=== PATIENT | male | born 1950 | race Caucasian/White ===

== ENCOUNTER → 2017-02-03 | Outpatient (CLI) | payer MEDICARE ==
[~2017-02-03] MED LIST: ADVAIR 250-501 EAC1 IH; ADVAIR 250-501 EACH IH; ADVAIR 2501 DISK W/D PO; ADVAIR 500-501 EACH INH; ADVAIR 5001 DISK W/2 INH; ADVAIR HFA 115-12 GM INH; AGGRENOX PO; ALBUTEROL17 GM INH; ALDACTONE25 MG PO; ALFUZOSIN HCL E10 MG PO; ALFUZOSIN HCL10 MG PO; ALPRAZOLAM ER1 MG PO; ALPRAZOLAM PO; ALPRAZOLAM1 MG PO; AMLODIPINE BESY10 MG PO; AMLODIPINE BESYL5 MG PO; ANTIVERT PO; ARICEPT PO; ASPIRIN PO; ASPIRIN81 MG PO; AVAPRO300 M1 PO; AVODART0.5 MG PO; BAYER CHEWABLE81 MG PO; BENICAR PO; BENICAR20 MG PO; BENZONATATE200 M1 PO; BONINE25 M1 PO; CAPOTEN50 MG PO; CARVEDILOL25 MG PO; CATAPRES-TTS-20.2 M1 EXT; CATAPRES-TTS-20.2 MG PO; CEFDINIR300 MG PO; CHANTIX PO; CLARINEX5 MG PO; CLARITIN10 M2 PO; CLOPIDOGREL BIS75 MG PO; CLOPIDOGREL75 MG PO; COLACE PO; COMBIVENT U/D3 M1 INH; COREG PO; COUMADIN4 MG PO; COUMADIN5 MG PO; CRESTOR PO; CYANOCOBALAM1000 MCG PO; CYMBALTA PO; CYMBALTA30 MG PO; DALIRESP500 MCG PO; DESENEX45 GM EXT; DESYREL50 MG PO; DEXILANT30 MG PO; DIOVAN PO; DONEPEZIL HCL10 MG PO; DULOXETINE HCL60 M1 PO; DULOXETINE HCL60 MG PO; DUONEB INH; ENSURE LIQUID237 M2 PO; FINASTERIDE5 M1 PO; FINASTERIDE5 MG PO; FISH OIL 1,0001 CAP PO; FLOMAX0.4 M1 PO; FLOMAX0.4 MG PO; FLOVENT HFA10.6 GM; FUROSEMIDE40 MG PO; HUMIBID-LA600 MG PO; HYDRALAZINE HCL25 MG PO; HYDRALAZINE HCL50 MG PO; HYDROCODON-ACE1 EAC5 PO; HYDROCODONE-APA1 T54 PO; INDOMETHACIN50 MG PO; IPRATR-ALBUTEROL3 ML INH; K-DUR20 ME1 PO; K-DUR20 ME2 PO; K-LOR20 MEQ PO; KCL PO; KEPPRA250 MG PO; KEPPRA500 M1 PO; KEPPRA500 M2 PO; KEPPRA500 MG PO; LASIX PO; LEVAQUIN PO; LEVAQUIN750 M1 PO; LEVOTHYROXINE25 MCG PO; LEVOTHYROXINE50 MC1 PO; LEVOXYL50 MCG PO; LISINOPRIL10 MG PO; LISINOPRIL5 MG PO; LORCET; LOTREL 10/20 MG1 CAP PO; MEDI-MECLIZINE25 M1 PO; MILK OF MAGNES311 MG PO; MIRALAX17 GM PO; MOBIC PO; MOTION RELIEF25 MG PO; MYCOLOG II CREA15 GM TOP; NEURONTIN300 MG PO; NEXIUM PO; NITROGYLCERIN SUBLINGUAL; NORCO 10-325 TA1 TAB PO; NORCO 10/3251 TAB PO; NORVASC PO; NORVASC10 MG PO; OMEGA 3 FISH1 CAP.EC PO; OMEGA-31000 M1 PO; PANTOPRAZOLE SO40 MG PO; PERCOCET 5-3251 TAB PO; PHENERGAN25 M1 PO; PHENERGAN25 MG PO; PLAVIX PO; POTASSIUM 99 MG; POTASSIUM CHLO10 ME1 PO; POTASSIUM CHLO20 ME1 PO; PREDNISONE PO; PREDNISONE50 MG PO; PRILOSEC PO; PRINIVIL5 MG PO; PROAIR HFA INH; PROAIR HFA8.5 GM IH; PROAIR HFA8.5 GM INH; PROTONIX PO; RANEXA500 MG PO; RAPAFLO4 MG PO; RAPAFLO8 MG PO; STOOL SOFTENER1 EAC1 PO; STOOL SOFTENER100 M1 PO; SYMBICORT INH; SYNTHROID0.05 MG PO; SYNTHROID25 MCG PO; TIZANIDINE HCL2 M1; TRAMADOL HCL50 M1 PO; TUDORZA PRESS400 MCG INH; TUMS500 MG PO; ULTRAM PO; UROXATRAL10 MG PO; VICODIN ES 7.51 EAC1 PO; VITAMIN D1000 UNI2 PO; VITAMIN D3 COM1 EACH PO; VIVLODEX5 MG PO; XANAX1 MG PO; XARELTO10 MG PO; ZOCOR PO; ZOFRAN PO
--- NOTE | ~2017-02-03 | CT57 ---
[facility] A Service of [facility] & [facility] RADIOLOGY TEXT RESULTS PATIENT: GIGI MENDOSA [facility] UNIT #: [id number] AGE: [address]: Demi Smith SEX: M ORDER DR: [id number] [facility] [address] [place], [place] [address] [id number] O MR#: [id number] [facility] #: [id number] NAME: GIGI MENDOSA. : 1950 SEX: M STUDY DATE/TIME: 02/03/2017 13:29 UNIT: [facility] ROOM: STUDY DESCRIPTION: CT Chest Wo Cont Attending Physician: Demi Smith A.P.R.N. Ordering Physician: Demi Smith A.P.R.N. Primary Care Physician: Bk Rubin M.D. MEDICAL IMAGING REPORT This report is preliminary unless electronic signature is present EXAM CT chest. INDICATION Abnormal CT scan of the chest. COPD. Pulmonary nodules. Restaging. TECHNIQUE CT of the thorax without contrast. Coronal and sagittal reconstructions were obtained. This CT exam was performed with one or more of the following radiation dose reduction techniques: automatic exposure control, adjustment of mA and/or kV according to patient size, and iterative reconstruction. COMPARISON CT chest dated 09/26/2016, 09/10/2016, 08/16/2016, 07/13/2016, and 11/08/2014. FINDINGS There is moderate emphysema. There is a 9 mm pulmonary nodule in the medial aspect of the right lower lobe. This is unchanged from prior study, however, is increased in size from more remote studies. This should be followed. There are some clustered areas of nodularity in the anterior aspect of the right upper lobe. There is a new pulmonary nodule in the medial aspect of the superior segment right middle lobe. Airspace opacities in both lung bases have improved since the prior study. Patient has had abdominal aortic endograft repair. The maximal diameter of the descending thoracic aortic aneurysm is 5.8 cm compared to 6.2 cm previously. There is no pericardial or pleural effusion. Patient is status post CABG. Limited images of the upper abdomen were obtained. There is a right STS. [facility] A Service of [facility] & [facility] RADIOLOGY TEXT RESULTS PATIENT: GIGI MENDOSA LOCATION: [facility] : 49 UNIT #: [id number] AGE: [address]: Demi Smith SEX: M ORDER DR: adrenal adenoma. No acute osseous abnormalities. IMPRESSION 1. Decreasing size of the thoracic aortic aneurysm measuring 5.8 cm compared to 6.2 centered previously. 2. 9 mm pulmonary nodule in the right middle lobe is unchanged from the most recent comparison, however, has increased in size from prior exams. This should continued to be continued to be followed. 3. New patchy nodularity in the right middle lobe and a new nodule in the superior segment right lower lobe. These should be followed. Given the clustered configuration, these are probably benign. Dictated by... Paul Marmolejo M.D. THIS IS AN ELECTRONICALLY VERIFIED REPORT Paul Marmolejo M.D. at 02/04/2017 8:09 AM ESTEBAN/kati TD: 02/03/2017 17:20 JOB #: [id number] MEDICAL IMAGING REPORT Page 1 of 1 COPY
== END | disposition home or self-care (01) ==
LOC: CCAT 12:58
DX: R93.8 Abnormal findings on diagnostic imaging of other specified body structures (principal); I71.2 Thoracic aortic aneurysm, without rupture; R91.8 Other nonspecific abnormal finding of lung field
CPT/HCPCS: 71250

== ENCOUNTER → 2017-03-15 | Outpatient (CLI) | payer MEDICARE ==
--- NOTE | ~2017-03-15 | CT4 ---
[facility] A Service of [facility] & [facility] RADIOLOGY TEXT RESULTS PATIENT: GIGI MENDOSA LOCATION: [facility] : 48 UNIT #: [id number] AGE: [address]: Demi Smith SEX: M ORDER DR: [id number] [facility] [address] [place], [place] [address] [id number] O MR#: [id number] Acc #: [id number] NAME: GIGI MENDOSA. : 1950 SEX: M STUDY DATE/TIME: 03/15/2017 15:11 [facility] ROOM: STUDY DESCRIPTION: CT Abd and Pelv Wo Cont Attending Physician: Demi Smith A.P.R.N. Referring Physician: Demi Smith A.P.R.N. Ordering Physician: Demi Smith A.P.R.N. Primary Care Physician: Bk Rubin M.D. MEDICAL IMAGING REPORT This report is preliminary unless electronic signature is present EXAM CT abdomen and pelvis INDICATIONS Abnormal chest CT. Kidney and breast cancer. Observation for metastatic disease. Infrarenal abdominal aortic aneurysm. TECHNIQUE CT of the abdomen and pelvis without contrast. Coronal and sagittal reconstructions were obtained. This CT exam was performed with one or more of the following radiation dose reduction techniques: Automatic exposure control, adjustment of mA and/or kV according to patient size, and iterative reconstruction. COMPARISON CT chest dated 02/03/2017. CT abdomen and pelvis dated 08/30/2016. FINDINGS A 9 mm pleural-based ovoid nodule in the medial right lower lobe is unchanged from at least 08/30/2016. The abdominal aorta measures up to 4.9 cm at the diaphragmatic hiatus, unchanged. Enlarged celiac origin is similar to the prior study. The aorta tapers to normal caliber at the SMA origin. Both common iliac arteries are normal in size. Noncontrast evaluation of the liver, gallbladder, pancreas, and spleen are within normal limits. There is a benign right adrenal adenoma. The left kidney is surgically absent. There is a benign exophytic cyst off the lower-pole right kidney measuring 1.6 cm. No hydronephrosis. The bowel is not dilated. PELVIS: No pelvic mass. Bladder is unremarkable. No enlarged pelvic or inguinal lymph nodes. [facility] A Service of [facility] & [facility] RADIOLOGY TEXT RESULTS PATIENT: GIGI MENDOSA LOCATION: [facility] : 49 UNIT #: [id number] AGE: [address]: Demi Smith SEX: M ORDER DR: No acute osseous abnormalities. IMPRESSION 1. No acute findings in the abdomen or pelvis. 2. 9 mm ovoid nodule in the right middle lobe. This is unchanged from at least 11/29/2015. 3. Aneurysm of the descending thoracic aorta/abdominal aorta. Size of the aorta is unchanged at the diaphragmatic hiatus. Dictated by... Paul Marmolejo M.D. THIS IS AN ELECTRONICALLY VERIFIED REPORT Paul Marmolejo M.D. at 03/16/2017 7:34 AM RPC/darrius TD: 03/15/2017 23:03 JOB #: [id number] MEDICAL IMAGING REPORT Page 1 of 1 COPY
== END | disposition home or self-care (01) ==
LOC: CCAT 13:58
DX: R93.8 Abnormal findings on diagnostic imaging of other specified body structures (principal); R91.1 Solitary pulmonary nodule; I71.2 Thoracic aortic aneurysm, without rupture
CPT/HCPCS: 74176

== ENCOUNTER → 2017-04-12 | Outpatient (CLI) | payer MEDICARE ==
--- NOTE | ~2017-04-12 | CT57 ---
[facility] A Service [facility] RADIOLOGY TEXT RESULTS PATIENT: GIGI MENDOSA LOCATION: [facility] : 49 UNIT #: [id number] AGE: [address]: Ena Steiner MD SEX: M ORDER DR: [id number] [place] [id number] [facility] [place], [place] [address] [id number] O MR#: [id number] Acc #: [id number] NAME: GIGI MENDOSA. : 1950 SEX: M STUDY DATE/TIME: 04/12/2017 12:14 UNIT: [facility] ROOM: STUDY DESCRIPTION: CT Chest Wo Cont Attending Physician: Ena Steiner M.D. Referring Physician: Ena Steiner M.D. Ordering Physician: Ena Steiner M.D. Primary Care Physician: Bk Rubin M.D. MEDICAL IMAGING REPORT This report is preliminary unless electronic signature is present EXAM CT of the chest without contrast INDICATIONS Followup pulmonary nodules. TECHNIQUE CT of the chest was performed without contrast. Coronal and sagittal reformatted images were obtained. This CT exam was performed with one or more of the following radiation dose reduction techniques: automatic exposure control, adjustment of mA and/or kV according to patient size, and iterative reconstruction. COMPARISON STUDIES 02/03/2017. FINDINGS Re-demonstrated is a thoracic aortic stent graft. There is no evidence for suspicious lymphadenopathy. There is no pleural effusion. There is some increased small amount of irregular parenchymal density in the left lung apex which may simply represent scarring, however I would recommend a short-interval follow-up chest CT in 3 months to document stability or clearing of this finding. There are emphysematous changes of the lungs. Stable scarring in the right middle lobe and lingula. There is some increased scarring in the anterior left upper lobe. There is a stable 1 cm nodule in the medial right lung base. Limited imaging of the upper abdomen demonstrates a slight increase in size of aneurysmal dilatation of the upper abdominal aorta measuring 5.1-5.2 cm. [facility] A Service of [facility] & [facility] RADIOLOGY TEXT RESULTS PATIENT: GIGI MENDOSA LOCATION: [facility] #: [id number] : 49 UNIT #: [id number] AGE: [address]: Ena Steiner MD SEX: M ORDER DR: IMPRESSION 1. There is a small parenchymal density in the left lung apex not seen on previous study. This may simply represent scarring, however I would recommend 3-month follow-up chest CT to document stability or clearing of this finding. 2. The 1 cm nodule in the medial right lower lobe is stable. 3. Slight interval increase in size of aneurysmal dilatation of the upper abdominal aorta. Dictated by... Chepe Arredondo M.D. THIS IS AN ELECTRONICALLY VERIFIED REPORT Chepe Arredondo M.D. at 04/13/2017 8:14 AM AUREA/caroline TD: 04/12/2017 17:27 JOB #: [id number] MEDICAL IMAGING REPORT Page 1 of 1 COPY
== END | disposition home or self-care (01) ==
LOC: CCAT 11:10
DX: R91.8 Other nonspecific abnormal finding of lung field (principal); J98.4 Other disorders of lung; I71.4 Abdominal aortic aneurysm, without rupture
CPT/HCPCS: 71250

== ENCOUNTER 2017-04-24 17:49 | Emergency (ER) | payer MEDICARE ==
--- NOTE | ~2017-04-24 | CR206 ---
[facility] A Service of [facility] & [facility] RADIOLOGY TEXT RESULTS PATIENT: GIGI MENDOSA LOCATION: [facility] : 48 UNIT #: [id number] AGE: [address]: Lamont Duque MD SEX: M ORDER DR: [id number] [facility] [address] [place], [place] [address] [id number] E MR#: [id number] Acc #: [id number] NAME: GIGI MENDOSA. : 1950 SEX: M STUDY DATE/TIME: 04/24/2017 20:18 UNIT: [facility] ROOM: STUDY DESCRIPTION: CR Pelvis 1 or 2 Views Attending Physician: Lamont Duque M.D. Ordering Physician: Juan Ochoa M.D. Primary Care Physician: Bk Rubin M.D. MEDICAL IMAGING REPORT This report is preliminary unless electronic signature is present EXAM Pelvis series, 04/24/2017 HISTORY Trauma left femur, knee, shoulder and pelvis. Pain and swelling. Fell today. FINDINGS AP radiograph of the pelvis is presented. No traumatic fracture or malalignment. Mild narrowing bilateral hip joints, right greater than left. Well-defined focal density in the intertrochanteric region left femur slightly more pronounced than in 2013. Appearance most consistent with bone island. The bowel gas pattern shows a large volume of stool in the colon. Correlate with any clinical signs or symptoms of constipation. There is no indication of free air. No pathologic colonic dilatation. The periarticular soft tissues are unremarkable. Dictated by... Ferdinand Yin M.D. THIS IS AN ELECTRONICALLY VERIFIED REPORT Ferdinand Yin M.D. at 04/25/2017 6:54 PM Klaus TD: 04/25/2017 12:03 JOB #: [id number] MEDICAL IMAGING REPORT Page 1 of 1 COPY
--- NOTE | ~2017-04-24 | CT71 ---
[facility] A Service [facility] RADIOLOGY TEXT RESULTS PATIENT: GIGI MENDOSA LOCATION: [facility] : 49 UNIT #: [id number] AGE: [address]: Lamont Duque MD SEX: M ORDER DR: [id number] [facility] [address] [place], [place] [address] [id number] E MR#: [id number] Acc #: [id number] NAME: GIGI MENDOSA. : 1950 SEX: M STUDY DATE/TIME: 04/24/2017 20:07 UNIT: [facility] ROOM: STUDY DESCRIPTION: CT Head Wo Contrast Attending Physician: Lamont Duque M.D. Ordering Physician: Juan Ochoa M.D. Primary Care Physician: Bk Rubin M.D. MEDICAL IMAGING REPORT This report is preliminary unless electronic signature is present EXAM CT head, noncontrast, 04/24/2017. HISTORY 66-year-old male in the ED with head pain (07/26) and posterior neck pain after injury. Fell today at about 05:[address] examination of the head was performed without IV contrast. This CT exam was performed with one or more of the following radiation dose reduction techniques: Automatic exposure control, adjustment of mA and/or kV according to patient size, and iterative reconstruction. FINDINGS No acute intracranial abnormality is identified, and there is no evidence of skull fracture. Minimal patchy low-attenuation white matter changes, greatest in the left internal capsule, nonspecific but likely related to chronic microvascular disease. This is unchanged since 07/21/2016. No evidence of intracranial hemorrhage, mass, mass effect, cerebral edema or hydrocephalus. Mucosal thickening is present within the visualized ethmoid and maxillary sinuses. IMPRESSION 1. No acute intracranial abnormality or visible skull fracture. 2. Stable mild diffuse chronic changes as noted. 3. No change since 07/21/2016. Dictated by... Ricki Bolanos M.D. [facility] A Service [facility] RADIOLOGY TEXT RESULTS PATIENT: GIGI MENDOSA LOCATION: [facility] : 49 UNIT #: [id number] AGE: [address]: Lamont Duque MD SEX: M ORDER DR: THIS IS AN ELECTRONICALLY VERIFIED REPORT Ricki Bolanos M.D. at 04/26/2017 8:50 AM Sheng TD: 04/25/2017 11:42 JOB #: [id number] MEDICAL IMAGING REPORT Page 1 of 1 COPY
--- NOTE | ~2017-04-24 | CR172 ---
[facility] A Service of [facility] & [facility] RADIOLOGY TEXT RESULTS PATIENT: GIGI MENDOSA LOCATION: [facility] : 49 UNIT #: [id number] AGE: [address]: Lamont Duque MD SEX: M ORDER DR: [id number] [facility] [address] [place], [place] [address] [id number] E MR#: [id number] Acc #: [id number] NAME: GIGI MENDOSA. : 1950 SEX: M STUDY DATE/TIME: 04/24/2017 20:25 UNIT: [facility] ROOM: STUDY DESCRIPTION: CR Knee 3 Views Lt Attending Physician: Lamont Duque M.D. Ordering Physician: Juan Ochoa M.D. Primary Care Physician: Bk Rubin M.D. MEDICAL IMAGING REPORT This report is preliminary unless electronic signature is present EXAM Left knee, 04/24/2017 HISTORY 66-year-old male in the ED complaining of left knee pain after a fall today. TECHNIQUE Three-view left knee series. FINDINGS No fracture, dislocation or other acute osseous abnormality is demonstrated. No visible joint effusion. IMPRESSION Negative left knee series. Dictated by... Ricki Bolanos M.D. THIS IS AN ELECTRONICALLY VERIFIED REPORT Ricki Bolanos M.D. at 04/26/2017 8:50 AM Milagros TD: 04/25/2017 11:52 JOB #: [id number] MEDICAL IMAGING REPORT Page 1 of 1 COPY
--- NOTE | ~2017-04-24 | CR229 ---
[facility] A Service of [facility] & [facility] RADIOLOGY TEXT RESULTS PATIENT: GIGI MENDOSA LOCATION: [facility] : 48 UNIT #: [id number] AGE: [address]: Lamont Duque MD SEX: M ORDER DR: [id number] [facility] [address] [place], [place] [address] [id number] E MR#: [id number] Acc #: [id number] NAME: GIGI MENDOSA. : 1950 SEX: M STUDY DATE/TIME: 04/24/2017 20:15 UNIT: [facility] ROOM: STUDY DESCRIPTION: CR Shoulder Min 2 View Lt Attending Physician: Lamont Duque M.D. Ordering Physician: Juan Ochoa M.D. Primary Care Physician: Bk Rubin M.D. MEDICAL IMAGING REPORT This report is preliminary unless electronic signature is present EXAM Left shoulder series, 04/24/2017 HISTORY Trauma. Today. Fell. Left femur, knee, shoulder and pelvis. Pain, swelling. FINDINGS AP internal-external rotation views of the left shoulder presented with transscapular view. Comparison 11/06/2014. No traumatic fracture or malalignment. Prior resection lateral left clavicle. Periarticular soft tissues show no acute abnormality. Visualized ribs are intact. Visualized pulmonary parenchyma clear. Prior thoracic aortic stent graft in descending thoracic aorta. Visualized components of the graft appear intact. Dictated by... Ferdinand Yin M.D. THIS IS AN ELECTRONICALLY VERIFIED REPORT Ferdinand Yin M.D. at 04/25/2017 6:54 PM Klaus TD: 04/25/2017 12:01 JOB #: [id number] MEDICAL IMAGING REPORT Page 1 of 1 COPY
--- NOTE | ~2017-04-24 | CT52 ---
[facility] A Service of [facility] RADIOLOGY TEXT RESULTS PATIENT: GIGI MENDOSA LOCATION: [facility] : 48 UNIT #: [id number] AGE: [address]: Lamont Duque MD SEX: M ORDER DR: [id number] [facility] [address] [place], [place] [address] [id number] E MR#: [id number] Acc #: [id number] NAME: GIGI MENDOSA. : 1950 SEX: M STUDY DATE/TIME: 04/24/2017 20:09 UNIT: [facility] ROOM: STUDY DESCRIPTION: CT Cervical Spine Wo Cont Attending Physician: Lamont Duque M.D. Ordering Physician: Juan Ochoa M.D. Primary Care Physician: Bk Rubin M.D. MEDICAL IMAGING REPORT This report is preliminary unless electronic signature is present EXAM Cervical spine CT. DATE 04/24/2017 HISTORY Fall today. Posterior neck pain, fell at 1700 hours today. Posterior neck pain. Multiple hit to the head during fall. TECHNIQUE CT cervical spine performed. Bone and soft tissue windows reviewed. Sagittal and coronal reconstructions performed. This CT exam was performed with one or more of the following radiation dose reduction techniques: automatic exposure control, adjustment of mA and/or kV according to patient size, and iterative reconstruction. COMPARISON No prior dedicated CT cervical spine for comparison. FINDINGS Visualized portions of brain unremarkable. Visualized paranasal sinuses and mastoid air cells clear. Visualized nasopharyngeal, oropharyngeal, pharyngeal mucosal, retropharyngeal spaces, larynx, subglottic airway, superior mediastinum unremarkable. Visualized thyroid, submandibular, parotid glands unremarkable. No cervical adenopathy. There is no evidence of acute traumatic cervical soft tissue abnormality. The lung apices are clear. Prior aortic stent graft placement. Unopacified vascular structures otherwise notable only for mild atherosclerotic calcification at the carotid bifurcations. Cervical spine alignment normal. Vertebral body height normal. Moderate [facility] A Service of [facility] RADIOLOGY TEXT RESULTS PATIENT: GIGI MENDOSA LOCATION: [facility] : 48 UNIT #: [id number] AGE: [address]: Lamont Duque MD SEX: M ORDER DR: narrowing C5-C6 intervertebral disc space. Milder narrowing elsewhere. Facet joint relationships normal. Multilevel degenerative change. C2-C3: Mild posterior disc bulge. No cord contact. No significant spinal canal narrowing. Neural foramina normal. C3-C4: Posterior disc osteophyte complex. Mild spinal canal narrowing. Uncovertebral and facet degenerative changes right greater than left. Mild to moderate right foraminal narrowing. C4-C5: Posterior disc osteophyte complex. Mild central spinal canal narrowing but no cord contact or compression. Uncovertebral and facet degenerative changes bilaterally. Dwtt-oj-gbjifnzp foraminal narrowing, left greater than right. C5-C6: Posterior disc osteophyte complex. Narrowing of the anterior thecal space. No cord contact. Right greater than left uncovertebral degenerative change. Mild to moderate left and moderate to marked right foraminal narrowing. Exiting right nerve irritation or wild impingement is a consideration. C6-C7: No significant disc bulge or herniation. Spinal canal diameter is normal. The neural foramina are unremarkable. C7-T1, T1-T2, T2-T3: Unremarkable. IMPRESSION 1. No traumatic fracture or malalignment in the cervical spine. 2. Multilevel degenerative changes. See [id number] descriptions in body of report above. 3. No traumatic-appearing soft tissue paraspinal abnormality seen. 4. Evidence of prior thoracic aortic stent graft placement. Dictated by... Ferdinand Yin M.D. THIS IS AN ELECTRONICALLY VERIFIED REPORT Ferdinand Yin M.D. at 04/25/2017 6:53 PM Glen[place] TD: 04/25/2017 11:44 JOB #: [id number] MEDICAL IMAGING REPORT Page 1 of 1 COPY
--- NOTE | ~2017-04-24 | CR106 ---
[facility] A Service of [facility] & [facility] RADIOLOGY TEXT RESULTS PATIENT: GIGI MENDOSA LOCATION: [facility] : 49 UNIT #: [id number] AGE: [address]: Lamont Duque MD SEX: M ORDER DR: [id number] [facility] [address] [place], [place] [address] [id number] E MR#: [id number] Acc #: [id number] NAME: GIGI MENDOSA. : 1950 SEX: M STUDY DATE/TIME: 04/24/2017 20:20 UNIT: [facility] ROOM: STUDY DESCRIPTION: CR Femur 2 Views Lt Attending Physician: Lamont Duque M.D. Ordering Physician: Juan Ochoa M.D. Primary Care Physician: Bk Rubin M.D. MEDICAL IMAGING REPORT This report is preliminary unless electronic signature is present EXAM Left femur 04/24/2017 HISTORY Fall, left femur, knee, shoulder and pelvis pain, swelling today fell. FINDINGS AP radiographs of the femur presented with a lateral view of the proximal femur. Study viewed in conjunction with lateral left femur seen on knee series. There is no fracture or traumatic malalignment. Mild narrowing left hip joint space. Bone island intertrochanteric region of femur. No suspicious or aggressive-appearing bony abnormality. The periarticular soft tissues are unremarkable. Visualized bony pelvis unremarkable. Dictated by... Ferdinand Yin M.D. THIS IS AN ELECTRONICALLY VERIFIED REPORT Ferdinand Yin M.D. at 04/25/2017 6:54 PM SHRUTHI/monika TD: 04/25/2017 12:03 JOB #: [id number] MEDICAL IMAGING REPORT Page 1 of 1 COPY
== END 2017-04-24 21:25 | disposition home or self-care (01) ==
LOC: CED 17:49 → CFTX 19:50 → CED 19:50
DX: S49.92XA Unspecified injury of left shoulder and upper arm, initial encounter (principal); S89.91XA Unspecified injury of right lower leg, initial encounter; Z88.2 Allergy status to sulfonamides; Z88.5 Allergy status to narcotic agent; Z88.8 Allergy status to other drugs, medicaments and biological substances; Z79.899 Other long term (current) drug therapy; W01.0XXA Fall on same level from slipping, tripping and stumbling without subsequent striking against object, initial encounter; Y92.009 Unspecified place in unspecified non-institutional (private) residence as the place of occurrence of the external cause
CPT/HCPCS: 70450; 72125; 72170; 73030; 73552; 73562; 99284

== ENCOUNTER → 2017-05-25 | Outpatient (CLI) | payer MEDICARE ==
[2017-05-25 13:56] LABS: POC - CREATININE 0.92 mg/dL (0.64-1.27); POC - GFR >60.0 mL/min (>60)
== END | disposition home or self-care (01) ==
LOC: CCAT 10:00
PROVIDERS: Surgery
DX: I71.6 Thoracoabdominal aortic aneurysm, without rupture (principal)
CPT/HCPCS: 82565; J7060

== ENCOUNTER → 2017-05-26 | Outpatient (CLI) | payer MEDICARE ==
--- NOTE | ~2017-05-26 | CT14 ---
[facility] A Service of [facility] & [facility] RADIOLOGY TEXT RESULTS PATIENT: GIGI MENDOSA LOCATION: [facility] : 48 UNIT #: [id number] AGE: [address]: JAIMEE KELLY MD SEX: M ORDER DR: [id number] [facility] [address] [place], [place] [address] [id number] O MR#: [id number] Acc #: [id number] NAME: GIGI MENDOSA : 1950 SEX: M STUDY DATE/TIME: 05/26/2017 10:17 UNIT: [facility] ROOM: STUDY DESCRIPTION: CT Angio Abdomen and Pelvis Attending Physician: Keith Kelly M.D. Ordering Physician: Keith Kelly M.D. Primary Care Physician: Bk Rubin M.D. MEDICAL IMAGING REPORT This report is preliminary unless electronic signature is present EXAM CTA abdomen and pelvis with IV contrast. DATE 05/26/2017 HISTORY Thoracoabdominal aortic aneurysm. Follow up. Mid abdominal pain for 1 year. Graft placement 1 year ago. History of kidney cancer with nephrectomy, history of breast cancer, history of skin cancer. FINDINGS Please see CT ANGIO CHEST report for combined text results. Dictated by... Madelin Bass M.D. THIS IS AN ELECTRONICALLY VERIFIED REPORT Madelin Bass M.D. at 05/27/2017 2:[address] [facility]/darrius TD: 05/26/2017 22:22 JOB #: [id number] MEDICAL IMAGING REPORT Page 1 of 1 COPY
--- NOTE | ~2017-05-26 | XA166 ---
[facility] A Service of [facility] & [facility] RADIOLOGY TEXT RESULTS PATIENT: GIGI MENDOSA LOCATION: CIVR : 48 UNIT #: [id number] AGE: [address]: JAIMEE KELLY MD SEX: M ORDER DR: [id number] [facility] [address] [place], [place] [address] [id number] O MR#: [id number] Acc #: [id number] NAME: GIGI MENDOSA : 1950 SEX: M STUDY DATE/TIME: 05/26/2017 8:36 [facility]: STUDY DESCRIPTION: XA PICC Line Placement WO Port Attending Physician: Keith Kelly M.D. Ordering Physician: Keith Kelly M.D. Primary Care Physician: Bk Rubin M.D. MEDICAL IMAGING REPORT This report is preliminary unless electronic signature is present EXAM PICC placement with ultrasound and fluoroscopic guidance. HISTORY Venous access needed for medications. TECHNIQUE The procedure was explained to the patient including risks, benefits and complications. Informed consent was obtained and a formal time-out procedure was utilized. Full barrier sterile technique was employed via standard protocol with prepping the skin with ChloraPrep, long drapes, cap, gown, mask, gloves, shoe covers, sterile ultrasound probe cover. Using sterile technique and following local anesthesia with 1% Xylocaine a brachial vein was punctured above the elbow on the left with ultrasound guidance. An 0.018 guidewire was passed into the superior vena cava under fluoroscopic guidance. A dilator and sheath were placed over the wire for a 4-[place] single-lumen PICC was measured to 50 cm, cut and deployed with the tip positioned at the cavoatrial junction. It was secured in place with adhesive dressing and an antibiotic patch. Total fluoroscopy time 0.8 minutes with a dose of 6 mg and one spot film obtained. IMPRESSION Successful placement of 4-Northern [place] single-lumen PICC via the left brachial vein above the elbow with ultrasound fluoroscopic guidance and full barrier sterile technique. Dictated by... Kumar Aguirre M.D. THIS IS AN ELECTRONICALLY VERIFIED REPORT [facility]. [facility] A Service of [facility] & [facility] RADIOLOGY TEXT RESULTS PATIENT: GIGI MENDOSA LOCATION: [facility] #: [id number] : [birth year] UNIT #: [id number] AGE: [address]: JAIMEE KELLY MD SEX: M ORDER DR: Kumar Aguirre M.D. at 05/27/2017 4:43 PM BENJAMIN/belia TD: 05/26/2017 19:46 JOB #: [id number] MEDICAL IMAGING REPORT Page 1 of 1 COPY
--- NOTE | ~2017-05-26 | CT15 ---
[facility] A Service of [facility] & [facility] RADIOLOGY TEXT RESULTS PATIENT: GIGI MENDOSA LOCATION: CIVR : 48 UNIT #: [id number] AGE: [address]: JAIMEE KELLY MD SEX: M ORDER DR: [id number] [facility] [address] [place], [place] [address] [id number] O MR#: [id number] Acc #: [id number] NAME: GIGI MENDOSA : 1950 SEX: M STUDY DATE/TIME: 05/26/2017 10:17 UNIT: [facility] ROOM: STUDY DESCRIPTION: CT Angio Chest Attending Physician: Keith Kelly M.D. Ordering Physician: Keith Kelly M.D. Primary Care Physician: Bk Rubin M.D. MEDICAL IMAGING REPORT This report is preliminary unless electronic signature is present EXAMINATION CTA chest, abdomen and pelvis with IV contrast. DATE 05/26/2017 HISTORY Thoracoabdominal aortic aneurysm. Follow up. Mid abdominal pain for 1 year. Graft placement 1 year ago. History of kidney cancer with nephrectomy, history of breast cancer, history of skin cancer. COMPARISON CT chest without contrast 04/12/2017. CT abdomen and pelvis without contrast 03/15/2017. PROCEDURE 2 mm axial images from the thoracic inlet through the upper thighs after IV contrast administration. 3-D reformatted images were obtained at a dedicated workstation. This CT exam was performed with one or more of the following radiation dose reduction techniques: Automatic exposure control, adjustment of mA and/or kV according to patient size, and iterative reconstruction. ARTERIAL ANATOMY: Stent graft extends from the distal transverse aorta just past the takeoff of the left subclavian artery and terminates in the distal descending thoracic aorta, above the diaphragmatic hiatus. It is similarly positioned compared to the previous exam. No in-stent thrombus is seen. Great arteries remain widely patent. 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 No evidence of endoleak. Mid descending thoracic aortic caliber is stable [facility] A Service of [facility] RADIOLOGY TEXT RESULTS PATIENT: GIGI MENDOSA LOCATION: [facility] : [birth year] UNIT #: [id number] AGE: [address]: JAIMEE KELLY MD SEX: M ORDER DR: measuring about 3.9 cm. 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 There is partial opacification of the right lower lateral endosac (series 5, image 114). The distal descending thoracic aorta above the hiatus measures slightly smaller in caliber, 5.7 cm compared to 6.2 cm on 04/12/2017. At the diaphragmatic hiatus, it measures about 4.9 cm compared 5.2 cm previously. It tapers to normal caliber in the juxtarenal segment. At the level of the SMA takeoff, the aneurysm measures about 4.1 cm, and is thought to be stable. The dissection flap has a large fenestration above the celiac takeoff. The dissection terminates at the origin of the right renal artery and does not appear to involve the renal artery itself. Right renal artery is widely patent. The celiac artery and SMA remain patent. Continuing infrarenal abdominal aorta and common iliac arteries are patent with only mild calcific atherosclerosis. Bilateral external iliac arteries, common femoral arteries, imaged superficial and deep femoral arteries are patent with mild calcific atherosclerosis. ADDITIONAL CHEST FINDINGS: Mild emphysematous changes are present. Chronic-appearing fibrosis in the left upper lobe anteriorly. Benign calcified granuloma in the right lower lobe. Noncalcified nodule along the medial pleural margin of the right costophrenic angle of the right lower lobe measures 9 mm, and is thought to be a stable finding when compared to the CT chest from 11/08/2014. No new pulmonary nodules are identified. No pericardial effusion. No pleural effusion. No pathologic adenopathy. No pneumothorax. Right mastectomy. ABDOMEN FINDINGS: Probable subcentimeter cyst or hemangioma in the left hepatic lobe, unchanged. Approximately 4.1 x 2.0 cm low-density right adrenal nodule (Hounsfield units 0.24) consistent with adenoma. Spleen, pancreas within normal limits. Multiple subcentimeter low-density lesions in the right kidney statistically favored to represent cysts. 1.5 cm cyst is seen within the right lower renal pole. Left nephrectomy. Presumed left adrenalectomy. Unopacified bowel appears within normal limits. ADDITIONAL PELVIS FINDINGS: Urinary bladder is decompressed. Prostate and rectum are within normal limits. IMPRESSION 1. Thoracic aortic stent graft appears stable in position. The thoracic aortic aneurysm appears stable in its mid-stented segment, and is stable to slightly smaller at the level of the diaphragmatic hiatus. At the level of the SMA takeoff, its size is approximately stable. 2. Chronic-appearing dissection in the distal descending thoracic aorta, [facility]. [facility] A Service of [facility] RADIOLOGY TEXT RESULTS PATIENT: GIGI MENDOSA LOCATION: [facility] : 48 UNIT #: [id number] AGE: [address]: JAIMEE KELLY MD SEX: M ORDER DR: terminating in the upper abdominal aorta, just above the takeoff of the right renal artery. There is some residual contrast opacification of the endosac along its right lateral margin in the distal descending thoracic aortic region. 3. Mesenteric arteries and renal artery appear patent. 4. Mentioned above, there is a dissection within the mid SMA (series 5, image 188), which is aneurysmal up to 1.4 cm. No evidence of mesenteric branch thrombosis. 5. Continuing iliac arteries and femoral arteries are patent. 6. Left nephrectomy and presumed left adrenalectomy. 7. Low-density right renal lesions favored to represent cysts. 8. Stable 9 mm right lower lobe nodule for 2 years consistent with a benign finding. No further followup is warranted with respect to this nodule. 9. Mild emphysema. 10. Right mastectomy. 11. Benign right adrenal adenoma. Dictated by... Madelin Bass M.D. THIS IS AN ELECTRONICALLY VERIFIED REPORT Madelin Bass M.D. at 05/27/2017 2:03 PM CAR/darrius TD: 05/26/2017 22:10 JOB #: [id number] MEDICAL IMAGING REPORT Page 1 of 1 COPY
== END | disposition home or self-care (01) ==
LOC: CIVR 08:00
DX: I71.03 Dissection of thoracoabdominal aorta (principal); Z45.2 Encounter for adjustment and management of vascular access device; Z90.5 Acquired absence of kidney; N28.9 Disorder of kidney and ureter, unspecified; J43.9 Emphysema, unspecified; D35.01 Benign neoplasm of right adrenal gland
CPT/HCPCS: 71275; 74174; 76937; 77001; 96360; 96361; C1751; J1642; J7060; Q9967